=== PATIENT | male | born 1950 | race Caucasian/White ===

== ENCOUNTER 2017-05-23 05:04 | Day surgery (SDC) | payer BC ==
[2017-05-23] MEDS ORDERED: Midazolam 1 MG/ML 2 ML SDV IV ONE (05:05)
[2017-05-23] MEDS ORDERED: fentaNYL 100 MCG/2 ML SDV IV ONE (05:05)
[2017-05-23] MEDS: Dextrose 5%-0.45% NaCl 1,000 ML IV SCH (05:49)
[2017-05-23] MEDS ORDERED: fentaNYL 100 MCG/2 ML SDV ONE (06:15)
[2017-05-23] MEDS ORDERED: Midazolam 1 MG/ML 2 ML SDV ONE (06:15)
[2017-05-23] MEDS: fentaNYL 100 MCG/2 ML SDV IV ONE ×2 (06:28→06:29)
[2017-05-23] MEDS: Midazolam 1 MG/ML 2 ML SDV IV ONE ×2 (06:30→06:31)
[2017-05-23 08:47] VITALS: BP 113/67
--- NOTE | 2017-05-23 11:09 | OR ---
DATE: 05/23/2017 PROCEDURE: Esophagogastroduodenoscopy and multiple pinch biopsies. INSTRUMENT USED: GIF-H180 Olympus video panendoscope. PREMEDICATIONS: No oral topical anesthesia used. Fentanyl 100 mcg intravenous, Versed 2 mg intravenous. The procedure was done under pulse oximetry, BP recording, and environmental monitoring specialist. INDICATION: The patient with long-standing heartburn on long-term aspirin, on PPI, and has FIT positive stools. Esophagogastroduodenoscopy is performed for detection of any active erosive lesions, Encinas's esophagus and/or malignancy also under consideration, H. pylori status to be determined, endoscopic hemostasis therapy if needed. DESCRIPTION OF PROCEDURE: The scope was passed with ease. Adequate visualization of the esophagus was made from proximal to distal areas. No upper esophageal lesions identified. No distal esophageal stricture. No uphill or downhill esophageal varices. No Zandra-Torre tear. No evidence of erosive esophagitis by Capay criteria. No esophageal polyp or tumor mass identified. Z-line was noted at around 40 cm distal to the oral verge. Configuration consistent with grade 1 by ZAP classification. No proximal gastric varices noted. Gastric fundus examination by retroflexion showed no polypoid lesions. No gastric ulcer, malignant mass, or vascular ectasia identified. Scattered gastric antral erosions were noted without bleeding from them. Duodenal bulb showed no ulcer. Visualized second part of the duodenum to unremarkable. Multiple pinch biopsies were taken from the gastric antrum and proximal body and sent for PyloriTek test for H. pylori, and if negative in an hour, the tissue is to be sent for histopathology. No bleeding was noted from any of the visualized areas at the completion of examination. Photographs were taken of the duodenal bulb, gastric antrum, fundus, and distal esophagus IMPRESSION: Gastric antral erosions. The patient tolerated the procedure well. [facility] /[id number]
== END 2017-05-23 08:26 | disposition home or self-care (01) ==
LOC: DL.ENDO 05:04
PROVIDERS: ATTEND Internal Medicine Gastroenterology
DX: K29.50 Unspecified chronic gastritis without bleeding (principal); I10 Essential (primary) hypertension; E11.9 Type 2 diabetes mellitus without complications; E66.9 Obesity, unspecified; E78.5 Hyperlipidemia, unspecified; Z88.8 Allergy status to other drugs, medicaments and biological substances
CPT/HCPCS: 43239; 87077; J2250; J3010; J7042

== ENCOUNTER 2017-05-25 06:29 | Day surgery (SDC) | payer BC ==
[~2017-05-25 06:29] MED LIST: Dextrose 5%-0.45% NaCl 1,000 ML IV SCH; Midazolam 1 MG/ML 2 ML SDV ONE; Sodium Chloride 0.9% 10 ML Syringe FLUSH PRN; fentaNYL 100 MCG/2 ML SDV ONE
[2017-05-25] MEDS ORDERED: fentaNYL 100 MCG/2 ML SDV IV ONE ×3 (06:30→08:04)
[2017-05-25] MEDS ORDERED: Midazolam 1 MG/ML 2 ML SDV IV ONE ×7 (06:30→08:11)
--- NOTE | 2017-05-25 10:53 | OR ---
DATE: 05/25/2017 PROCEDURE: Total colonoscopy, NBI, and multiple cold snare polypectomies. INSTRUMENT USED: CF-H180AL Olympus video colonoscope. PREMEDICATIONS: Fentanyl 100 mcg intravenous, Versed 4 mg intravenous. Nasal O2 cannula. The procedure was done under pulse oximetry, BP recording, and environmental monitoring technician. INDICATION: The patient with positive FIT. Colonoscopic examination is done for detection of any polypoid lesions and removal, endoscopic hemostasis therapy if needed. DESCRIPTION OF PROCEDURE: Initial rectal exam was unremarkable. Rigid anoscopy showed small internal hemorrhoids without bleeding from them. The colonoscope was passed with ease up to the ileocecal area, photographs were taken of the normal-appearing cecum identified by double-bulged ileocecal folds. No bleeding was noted from any of the visualized areas at the commencement of the examination. No stricture. No vascular ectasia. No large isolated ulcerations seen. No evidence of diffuse inflammatory bowel disease in the form of friability, contact bleeding, or ulcerations. In the mid transverse colon, couple of 5 mm sized benign-appearing polyps were noted. NBI views were obtained, photograph was taken of the distal polyp, multiple cold snare polypectomies were done, the tissues were retrieved and sent for histopathology. In the distal ascending colon, another 3 mm sized benign appearing polyp was noted, cold snare polypectomy was done, the tissue was retrieved and sent for histopathology. Probing the proximal sides of folds and flexures, using adequate distention and clearing up the stool material, withdrawal of the scope was made. No bleeding was noted from any of the visualized areas at the completion of examination. IMPRESSION: 1. Internal hemorrhoids. 2. Multiple colonic polyps. The patient tolerated the procedure well. [facility] /[id number]
[2017-05-25 12:01] VITALS: BP 126/78
== END 2017-05-25 10:27 | disposition home or self-care (01) ==
LOC: DL.ENDO 06:29
PROVIDERS: ATTEND Internal Medicine Gastroenterology
DX: D12.2 Benign neoplasm of ascending colon (principal); D12.3 Benign neoplasm of transverse colon; K64.8 Other hemorrhoids; E66.9 Obesity, unspecified; I10 Essential (primary) hypertension; E11.9 Type 2 diabetes mellitus without complications; E78.5 Hyperlipidemia, unspecified; Z88.8 Allergy status to other drugs, medicaments and biological substances
CPT/HCPCS: J2250; J3010; J7042

== ENCOUNTER 2020-08-02 10:02 | Emergency (ER) | payer MEDICARE, BC ==
[2020-08-02 11:57] VITALS: BP 131/81; PULSE 77
[2020-08-02 13:10] LABS: ANION GAP 13.3 mEq/L (7-13); CHLORIDE,CL 94 mmol/L (98-107); SODIUM,NA 134 mmol/L (136-145)
[2020-08-02 13:13] LABS: PTT,PARTIAL THROMBOPLSTIN TIME 25.6 SEC (22.0-34.0)
--- NOTE | 2020-08-02 13:16 | EDM.PDOC ---
Scribed by Teresa Benitez 08/02/20 1316 for Geo Watts MD ED HPI GENERAL MEDICAL PROBLEM - General Chief Complaint: General Stated Complaint: [id number] COVID + LIGHTHEADED NOT IMPROVING Time Seen by Provider: 08/02/20 12:07 Source of Information: Reports: Patient, RN, RN Notes Reviewed History Limitations: Reports: No Limitations - History of Present Illness INITIAL COMMENTS - FREE TEXT/NARRATIVE: Patient presents to ED by POV stating not feeling better yet and lightheaded. Patient is COVID positive. He was diagnosed with COVID 5 days ago. This morning he became lightheaded. He did not pass out. Symptoms are recurrent so he came to the ER for evaluation. Patient states that he feels fatigued, loss of appetite with some nausea and a mild cough. Denies chest pain or shortness of breath. Denies orthostatic dizziness. Onset: Gradual Duration: Getting Worse Location: Reports: Generalized Quality: Reports: Ache Severity: Moderate Improves with: Reports: None Worsens with: Reports: None Associated Symptoms: Reports: No Other Symptoms - Related Data Allergies Allergy/AdvReac Type Severity Reaction Status Date / Time lisinopril AdvReac Cough Verified 08/02/20 10:48 Home Meds: Home Meds Chlorthalidone 12.5 mg PO DAILY 05/22/17 [History] Omeprazole 20 mg PO DAILY 05/22/17 [History] amLODIPine Besylate [Amlodipine Besylate] 7.5 mg PO DAILY 05/22/17 [History] atorvaSTATin [Lipitor] 40 mg PO DAILY 05/22/17 [History] metFORMIN [Glucophage] 500 mg PO BID 05/22/17 [History] Past Medical History HEENT History: Reports: Impaired Vision, Other (See Below) Other HEENT History: WEARS CORRECTIVE LENS Cardiovascular History: Reports: High Cholesterol, Hypertension Respiratory History: Reports: Other (See Below) Other Respiratory History: positive covid 19 07/31/20 Gastrointestinal History: Reports: None Genitourinary History: Reports: None Musculoskeletal History: Reports: Arthritis Neurological History: Reports: None Psychiatric History: Reports: None Endocrine/Metabolic History: Reports: Diabetes, Type II, Obesity/BMI 30+ Hematologic History: Reports: None Immunologic History: Reports: None Oncologic (Cancer) History: Reports: Other (See Below) Other Oncologic History: some kind of skin ca Dermatologic History: Reports: Other (See Below) Other Dermatologic History: 'SKIN LESIONS' NOTED ON H & P BY DR. WALKER 05/19/17 - Infectious Disease History Infectious Disease History: Reports: Chicken Pox, Mumps, Novel Coronavirus - Past Surgical History Head Surgeries/Procedures: Reports: None HEENT Surgical History: Reports: None Cardiovascular Surgical History: Reports: None Respiratory Surgical History: Reports: None GI Surgical History: Reports: None Male Surgical History: Reports: None Endocrine Surgical History: Reports: None Neurological Surgical History: Reports: Lumbar Spine, Other (See Below) Other Neurological Surgeries/Procedures: cyst to lower back Musculoskeletal Surgical History: Reports: None Oncologic Surgical History: Reports: None Dermatological Surgical History: Reports: None Social & Family History - Family History Family Medical History: No Pertinent Family History - Tobacco Use Tobacco Use Status *Q: Unknown Ever Used Tobacco - Caffeine Use Caffeine Use: Reports: Coffee Other Caffeine Use: AVERAGE OF 4 CUPS DAILY - Recreational Drug Use Recreational Drug Use: No - Living Situation & Occupation Living situation: Reports: , with Spouse Occupation: Retired ED ROS GENERAL - Review of Systems Review Of Systems: Comprehensive ROS is negative, except as noted in HPI. ED EXAM, GENERAL - Physical Exam Exam: See Below Exam Limited By: No Limitations General Appearance: Alert, WD/WN, No Apparent Distress Eye Exam: Bilateral Eye: EOMI, Normal Inspection, PERRL Ears: Normal External Exam, Normal Canal, Hearing Grossly Normal, Normal TMs Nose: Normal Inspection, Normal Mucosa, No Blood Throat/Mouth: Normal Inspection, Normal Lips, Normal Teeth, Normal Gums, Normal Oropharynx, Normal Voice, No Airway Compromise Head: Atraumatic, Normocephalic Neck: Normal Inspection, Supple, Non-Tender, Full Range of Motion Respiratory/Chest: No Respiratory Distress, Lungs Clear, Normal Breath Sounds, No Accessory Muscle Use, Chest Non-Tender Cardiovascular: Normal Peripheral Pulses, Regular Rate, Rhythm, No Edema, No Gallop, No JVD, No Murmur, No Rub GI/Abdominal: Normal Bowel Sounds, Soft, Non-Tender, No Organomegaly, No Distention, No Abnormal Bruit, No Mass (Male) Exam: Deferred Rectal (Males) Exam: Deferred Back Exam: Normal Inspection, Full Range of Motion, NT Extremities: Normal Inspection, Normal Range of Motion, Non-Tender, Normal Capillary Refill, No Pedal Edema Neurological: Alert, Oriented, CN II-XII Intact, Normal Cognition, Normal Gait, Normal Reflexes, No Motor/Sensory Deficits Psychiatric: Normal Affect, Normal Mood Skin Exam: Warm, Dry, Intact, Normal Color, No Rash #1 Interpretation EKG Date: 08/02/20 Time: 12:21 Rhythm: Other (sinus r ectopic atrial rhythm) Rate (Beats/Min): 75 [place]: Normal P-Wave: Present QRS: Normal ST-T: Normal QT: Normal Course - Vital Signs Last Recorded V/S: Last Vital Signs Temp 97.1 F 08/02/20 11:56 Pulse 77 08/02/20 11:56 Resp 18 08/02/20 11:56 BP 131/81 08/02/20 11:56 Pulse Ox 96 08/02/20 11:56 - Orders/Labs/Meds Orders: Active Orders 24 hr Category Date Time Status EKG 12 Lead [EKG Documentation Completion] [RC] STAT Care 08/02/20 12:12 Active D Dimer [D-DIMER QUANTITATIVE] [COAG] Stat Lab 08/02/20 12:33 Results FERRITIN [CHEM] Stat Lab 08/02/20 12:12 Ordered INR,PT,PROTHROMBIN TIME [COAG] Stat Lab 08/02/20 12:33 Results PTT,PARTIAL THROMBOPLSTIN TIME [COAG] Stat Lab 08/02/20 12:33 Results Labs: Laboratory Tests 08/02/20 08/02/20 08/02/20 Range/Units 12:33 12:33 12:33 WBC 5.8 (5.0-10.0) 10^3/uL RBC 5.00 (4.6-6.2) 10^6/uL Hgb 13.9 L D (14.0-18.0) g/dL Hct 40.3 (40.0-54.0) % MCV 80.6 (80-100) fL MCH 27.8 (27.0-34.0) pg MCHC 34.5 (33.0-35.0) g/dL Plt Count 149 L (150-450) 10^3/uL Neut % (Auto) 75.5 H (42.2-75.2) % Lymph % (Auto) 17.0 L (20.5-50.1) % Foster % (Auto) 7.0 (2-8) % Eos % (Auto) 0.3 L (1.0-3.0) % Baso % (Auto) 0.2 (0.0-1.0) % D-Dimer, Quantitative 221 (0-400) ng/mL Sodium 134 L (136-145) mmol/L Potassium 3.3 L (3.5-5.1) mmol/L Chloride 94 L (98-107) mmol/L Carbon Dioxide 30 (21-32) mmol/L Anion Gap 13.3 H (7-13) mEq/L BUN 13 (7-18) mg/dL Creatinine 1.02 (0.70-1.30) mg/dL Est Cr Clr Drug Dosing 74.85 mL/min Estimated GFR (MDRD) > 60 BUN/Creatinine Ratio 12.7 (No establ ref range) Glucose 338 H (70-99) mg/dL Calcium 8.5 (8.5-10.1) mg/dL Total Bilirubin 0.7 (0.2-1.0) mg/dL AST 14 L (15-37) U/L ALT 30 (16-63) U/L Alkaline Phosphatase 101 (46-116) U/L Lactate Dehydrogenase 195 (85-227) U/L Troponin I < 0.017 (0.000-0.056) ng/mL C-Reactive Protein 10.4 H (0.0-0.9) mg/dL Total Protein 7.1 (6.4-8.2) g/dL Albumin 3.3 L (3.4-5.0) g/dL Globulin 3.8 Albumin/Globulin Ratio 0.87 Departure - Departure Time of Disposition: 13:13 Disposition: Home, Self-Care 01 Condition: Good Clinical Impression: COVID-19 viremia - Discharge Information *PRESCRIPTION DRUG MONITORING PROGRAM REVIEWED*: Not Applicable *COPY OF PRESCRIPTION DRUG MONITORING REPORT IN PATIENT ROSLYN: Not Applicable Instructions: COVID-19, COVID-19: Quarantine vs. Isolation - CDC Forms: ED Department Discharge Additional Instructions: Remain isolated at home for 14 days from the onset of your symptoms. Eat three healthy meals each day even if your appetite is poor. Call 911 or return to ER if you develop difficulty breathing. Sepsis Event Note (ED) - Evaluation Sepsis Screening Result: No Definite Risk - Focused Exam Vital Signs: Vital Signs Temp Pulse Resp BP Pulse Ox 08/02/20 11:56 97.1 F 77 18 131/81 96 08/02/20 10:37 97.5 F 106 H 18 134/82 97 - My Orders Last 24 Hours: My Active Orders 08/02/20 12:12 EKG 12 Lead [EKG Documentation Completion] [RC] STAT FERRITIN [CHEM] Stat 08/02/20 12:33 D Dimer [D-DIMER QUANTITATIVE] [COAG] Stat INR,PT,PROTHROMBIN TIME [COAG] Stat PTT,PARTIAL THROMBOPLSTIN TIME [COAG] Stat - Assessment/Plan Last 24 Hours: My Active Orders 08/02/20 12:12 EKG 12 Lead [EKG Documentation Completion] [RC] STAT FERRITIN [CHEM] Stat 08/02/20 12:33 D Dimer [D-DIMER QUANTITATIVE] [COAG] Stat INR,PT,PROTHROMBIN TIME [COAG] Stat PTT,PARTIAL THROMBOPLSTIN TIME [COAG] Stat I have read and agree with the documentation that has been completed regarding this visit. By signing this record, I attest that the documentation was completed in my physical presence and is an accurate record of the encounter.
== END 2020-08-02 13:19 | disposition home or self-care (01) ==
LOC: DL.ED 10:02
DX: U07.1 COVID-19 (principal); E78.00 Pure hypercholesterolemia, unspecified; I10 Essential (primary) hypertension; E11.9 Type 2 diabetes mellitus without complications; E66.9 Obesity, unspecified; Z68.26 Body mass index [BMI] 26.0-26.9, adult; Z79.84 Long term (current) use of oral hypoglycemic drugs; Z88.8 Allergy status to other drugs, medicaments and biological substances; Z79.899 Other long term (current) drug therapy
CPT/HCPCS: 36415; 80053; 82728; 83615; 84484; 85025; 85379; 85610; 85730; 86140; 93005; 93010; 99283; 99284-25

== ENCOUNTER 2022-04-11 09:17 | Emergency (ER) | payer MEDICARE, BC ==
[2022-04-11 09:46] VITALS: BP 160/106; PULSE 101
[2022-04-11] MEDS ORDERED: Simethicone 80 MG Tab.Chew PO ONE (10:28)
[2022-04-11] MEDS ORDERED: Metoclopramide 10 MG Tab PO ONE (10:29)
== END 2022-04-11 10:51 | disposition home or self-care (01) ==
LOC: DL.ED 09:17
DX: K59.01 Slow transit constipation (principal); K30 Functional dyspepsia; E78.00 Pure hypercholesterolemia, unspecified; I10 Essential (primary) hypertension; E11.9 Type 2 diabetes mellitus without complications; Z88.8 Allergy status to other drugs, medicaments and biological substances; Z79.84 Long term (current) use of oral hypoglycemic drugs; Z79.899 Other long term (current) drug therapy; Z86.16 Personal history of COVID-19
CPT/HCPCS: 74019; 99283; A9270

== ENCOUNTER 2022-04-12 04:19 | Emergency (ER) | payer MEDICARE, BC ==
[2022-04-12 05:02] VITALS: BP 121/74; PULSE 95
[2022-04-12] MEDS ORDERED: Iopamidol 612 MG/ML 100 ML Bottle IVPUSH ONE (05:30)
[2022-04-12 05:37] LABS: ANION GAP 15.5 mEq/L (7-13)
[2022-04-12] MEDS ORDERED: Sodium Chloride 0.9% 1,000 ML IV ONE (05:53)
== END 2022-04-12 09:00 | disposition home or self-care (01) ==
LOC: DL.ED 04:19
DX: K63.5 Polyp of colon (principal); K59.9 Functional intestinal disorder, unspecified; E78.00 Pure hypercholesterolemia, unspecified; I10 Essential (primary) hypertension; E11.9 Type 2 diabetes mellitus without complications; Z88.8 Allergy status to other drugs, medicaments and biological substances; Z79.899 Other long term (current) drug therapy; Z79.84 Long term (current) use of oral hypoglycemic drugs; Z86.16 Personal history of COVID-19
CPT/HCPCS: 36415; 74177; 80053; 81003; 85025; 96360; 96361; 99284; J7030; Q9967

== ENCOUNTER 2022-05-10 06:23 | Day surgery (SDC) | payer MEDICARE, BC ==
[~2022-05-10 06:23] MED LIST changes: +Sodium Chloride 0.9% 10 ML Syringe FLUSH SCH
[2022-05-10] MEDS ORDERED: fentaNYL 100 MCG/2 ML SDV IV ONE ×3 (06:24→07:58)
[2022-05-10] MEDS ORDERED: Midazolam 1 MG/ML 2 ML SDV IV ONE ×6 (06:24→08:06)
[2022-05-10 10:20] VITALS: BP 138/79; PULSE 75
== END 2022-05-10 09:55 | disposition home or self-care (01) ==
LOC: DL.ENDO 06:23
PROVIDERS: ATTEND Internal Medicine Gastroenterology
DX: Z12.11 Encounter for screening for malignant neoplasm of colon (principal); D12.3 Benign neoplasm of transverse colon; I10 Essential (primary) hypertension; E78.5 Hyperlipidemia, unspecified; E11.9 Type 2 diabetes mellitus without complications; Z98.890 Other specified postprocedural states; Z88.8 Allergy status to other drugs, medicaments and biological substances
CPT/HCPCS: J2250; J3010; J7042

== ENCOUNTER 2022-06-06 09:57 | Emergency (ER) | payer MEDICARE, BC ==
[2022-06-06 10:30] VITALS: BP 143/100
[2022-06-06 11:31] VITALS: PULSE 98
== END 2022-06-06 11:20 | disposition home or self-care (01) ==
LOC: DL.ED 09:57
DX: N40.1 Benign prostatic hyperplasia with lower urinary tract symptoms (principal); R39.16 Straining to void; K59.09 Other constipation; E78.00 Pure hypercholesterolemia, unspecified; I10 Essential (primary) hypertension; E11.9 Type 2 diabetes mellitus without complications; Z86.16 Personal history of COVID-19; Z88.8 Allergy status to other drugs, medicaments and biological substances; Z79.899 Other long term (current) drug therapy; Z79.84 Long term (current) use of oral hypoglycemic drugs
CPT/HCPCS: 74019; 99283; 99284